=== PATIENT | female | born 1990 | race American Indian/Alaskan Native ===

== ENCOUNTER 2021-09-02 08:25 | Emergency (ER) | payer OTHER ==
--- NOTE | 2021-09-02 09:51 | XRay Report ---
Right shoulder, 3 views HISTORY: Pain after injury COMPARISON: None FINDINGS: There is anterior dislocation of the humeral head with respect to the glenoid. No discrete fracture is identified. Signer Name: Cristopher Zamudio MD Signed: 09/02/2021 9:46 AM Workstation Name: [facility]
--- NOTE | 2021-09-02 11:35 | Emergency Department Report ---
ED Upper Extremity Inj HPI - General Chief Complaint: Shoulder Injury Stated Complaint: SHOULDER PAIN Time Seen by Provider: 09/02/21 11:19 Source: patient Mode of arrival: Ambulatory Limitations: No Limitations - History of Present Illness Initial Comments: Patient is a 31-year-old female presenting to ED with complaint of right shoulder pain and limited mobility. States she slipped on a slick rock while at [place] yesterday and landed on her right shoulder. Reports 10 out of 10 pain. - Related Data Allergies Allergy/AdvReac Type Severity Reaction Status Date / Time No Known Allergies Allergy Verified 09/02/21 09:22 ED Review of Systems ROS: Stated complaint: SHOULDER PAIN Other details as noted in HPI Comment: All other systems reviewed and negative Constitutional: denies: chills, fever Respiratory: denies: cough, shortness of breath, wheezing Cardiovascular: denies: chest pain, palpitations Gastrointestinal: denies: abdominal pain, nausea, diarrhea Genitourinary: denies: urgency, dysuria, discharge Skin: denies: rash, lesions Neurological: denies: headache, weakness, paresthesias Psychiatric: denies: anxiety, depression ED Past Medical Hx - Past Medical History Previous Medical History?: No - Surgical History Past Surgical History?: No ED Physical Exam - General Limitations: No Limitations General appearance: alert, in no apparent distress - Head Head exam: Present: atraumatic, normocephalic - Neck Neck exam: Present: normal inspection - Respiratory Respiratory exam: Present: normal lung sounds bilaterally. Absent: respiratory distress - Cardiovascular Cardiovascular Exam: Present: regular rate, normal rhythm, normal heart sounds - GI/Abdominal GI/Abdominal exam: Present: soft. Absent: distended, tenderness - Extremities Exam Extremities exam: Present: other (Contour deformity to right shoulder with limited active and passive range of motion secondary to pain.) - Neurological Exam Neurological exam: Present: oriented X3 - Psychiatric Psychiatric exam: Present: normal affect, normal mood - Skin Skin exam: Present: warm, dry, intact, normal color ED Course Vital Signs 09/02/21 09/02/21 09:23 12:35 Temperature 98 F Pulse Rate 87 Respiratory 16 Rate Blood Pressure 136/83 [Left] O2 Sat by Pulse 98 100 Oximetry - Moderate Sedation Indications: fracture/dislocation redu ASA Class: I Mallampati Airway Score: 1 Preparation: fork assembler applied, pulse oximeter, supplemental O2 applied IV Propofol Dose (mgs): 40 Complications: none Patient Tolerated Procedure: well, no complications - Orthopedic Joint Reduction Joint #1 Consent Obtained: written consent Time Out Performed: Yes Side: right Joint Reduction Location: shoulder Analgesia: moderate sedation Shoulder Technique Used (if applicable): traction/counter-traction Technique Used: traction/counter-traction Post-Reduction Neuro Exam: intact Post-Reduction Vascular Exam: intact Post Reduction X-Ray Obtained: Yes Post Reduction X-Ray Results: reduced Splint Applied: No (Placed in sling) Patient Tolerated Procedure: well, no complications ED Medical Decision Making - Medical Decision Making Patient presenting to ED with right shoulder dislocation. This was reduced under moderate sedation. Patient tolerated the procedure well with no complications. She was placed in a sling for comfort. She was monitored in the ED for over an hour after the procedure. Stable for discharge home with return precautions. Critical care attestation.: If time is entered above; I have spent that time in minutes in the direct care of this critically ill patient, excluding procedure time. ED Disposition Clinical Impression: Anterior dislocation of right shoulder Disposition: 01 HOME / SELF CARE / HOMELESS Is pt being admited?: No Does the pt Need Aspirin: No Condition: Stable Instructions: Shoulder Dislocation Referrals: DE GARLAND MD [Primary Care Provider] - 3-5 Days Time of Disposition: 13:56
[2021-09-02] MEDS ORDERED: SODIUM CHLORIDE 0.9% 1000 ML 1,000 ML ONE (12:07)
[2021-09-02] MEDS: propofoL 200 MG/20 ML VIAL IV ONE (12:34)
[2021-09-02] MEDS: MORPHINE 4 MG/1 ML INJ IV ONE (13:05)
--- NOTE | 2021-09-02 13:13 | XRay Report ---
RIGHT SHOULDER 3 VIEW(S) INDICATION / CLINICAL INFORMATION: Postreduction COMPARISON: None available. FINDINGS: BONES / JOINT(S): Successful reduction in previously noted right anterior glenohumeral dislocation. N o definite fracture. No significant arthritis. SOFT TISSUES: No significant abnormality. ADDITIONAL FINDINGS: None. Signer Name: James Dodge MD Signed: 09/02/2021 1:08 PM Workstation Name: [email or web address] [id number]
[2021-09-02] MEDS: HYDROmorphone 1 MG/1 ML INJ IV ONE (15:15)
[2021-09-02 16:58] VITALS: BP 112/72
== END 2021-09-02 16:58 | disposition home or self-care (01) ==
LOC: ED 08:25
DX: S43.004A Unspecified dislocation of right shoulder joint, initial encounter (principal); W19.XXXA Unspecified fall, initial encounter; Y93.89 Activity, other specified; Y92.89 Other specified places as the place of occurrence of the external cause; Y99.8 Other external cause status
CPT/HCPCS: 23650; 73030; 96374; 96375; 99283; J1170; J2270; J2704; J7030